=== PATIENT | male | born 1955 | race Caucasian/White ===

== ENCOUNTER 2022-12-01 20:52 | Emergency (ER) | payer MEDICARE, OTHER ==
[~2022-12-01] VITALS: Ht 175.3 cm; Wt 83.9 kg
--- NOTE | 2022-12-01 21:39 | NUR ---
BIBPA. R LOWER ABD PAIN X LAST NIGHT. REPORTS EPISODES OF VOMITING. 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 CHANGED INTO GOWN AND PLACED ON MONITOR AND V/S WNL.
--- NOTE | 2022-12-01 21:40 | NUR ---
22G IV STARTED AT . UNABLE TO DRAW BLOOD. PHLEB AT BEDSIDE FOR LAB DRAW.
[2022-12-01] MEDS ORDERED: MORPHINE SULFATE INJ 2 MG/ML DISP.SYRIN IV ONE (22:30)
[2022-12-01 22:32] LABS: BASOPHILS % (AUTO) 0.4 % (0.0-2.0); EOSINOPHILS % (AUTO) 2.8 % (0.0-6.0); HEMATOCRIT 47 % (39-51); HEMOGLOBIN 15.2 g/dL (13.5-17.5); LYMPHOCYTES # (AUTO) 1.6 K/uL (0.8-4.8); MEAN CORPUSCULAR HGB CONC 33 g/dl (31.0-36.0); MEAN CORPUSCULAR VOLUME 94 fL (80-96); MONOCYTES # (AUTO) 0.8 K/uL (0.1-1.30); MONOCYTES % (AUTO) 9.1 % (2.0-12.0); NEUTROPHILS # (AUTO) 5.7 K/uL (1.8-8.9); NEUTROPHILS % (AUTO) 68.7 % (43.0-81.0); PLATELET COUNT (AUTO) 189 K/uL (150-450); RED BLOOD CELL COUNT(AUTO) 4.95 MIL/uL (4.5-6.0); WHITE BLOOD COUNT (AUTO) 8.3 K/uL (4.3-11.0)
[2022-12-01 22:41] LABS: CALCIUM, SERUM 8.9 mg/dL (8.5-10.1); CREATININE 1.2 mg/dL (0.6-1.3); POTASSIUM 3.6 mmol/L (3.5-5.1)
[2022-12-01 22:47] LABS: ALBUMIN 3.3 g/dL (3.4-5.0); BILIRUBIN,DIRECT 0.2 mg/dL (0.0-0.2); BILIRUBIN,TOTAL 0.4 mg/dL (0.2-1.0); TOTAL PROTEIN, SERUM 6.7 g/dL (6.4-8.2)
[2022-12-01] MEDS ORDERED: MORPHINE SULFATE INJ 2 MG/ML DISP.SYRIN ONE (22:50)
[2022-12-02] MEDS ORDERED: LIDOCAINE 2% JEL UROJET 10 ML MM ONE (00:32)
--- NOTE | 2022-12-02 00:47 | NUR ---
URINE SENT TO LAB
--- NOTE | 2022-12-02 01:13 | NUR ---
US TECH AT BEDSIDE
[2022-12-02 01:28] LABS: BILIRUBIN,URINE NEGATIVE (NEGATIVE); COLOR,URINE YELLOW (YELLOW); LEUKOCYTE ESTERASE ,URINE NEGATIVE (NEGATIVE); NITRITE, URINE NEGATIVE (NEGATIVE); PROTEIN,URINE NEGATIVE (NEGATIVE); UGLUCOSE NEGATIVE (NEGATIVE); UROBILINOGEN,URINE 0.2 EU/dL (0.2)
[2022-12-02] MEDS ORDERED: ONDA4TAB11 PO (01:30)
--- NOTE | 2022-12-02 01:32 | NUR ---
[facility] CALLED FOR TRANSPORT. ETA 90-120 MINUTES.
--- NOTE | 2022-12-02 01:58 | NUR ---
REPORT GIVEN TO CHRIS AT [facility]
--- NOTE | 2022-12-02 02:30 | NUR ---
[facility] AT BEDSIDE FOR DISCHARGE BACK TO SNF
--- NOTE | 2022-12-02 02:45 | NUR ---
PT PICKED [facility]. HYDRANT SETTER PROVIDED WITH COPIES OF DISCHARGE PAPERS AND LAB/IMAGING RESULTS
[2022-12-02 03:25] VITALS: BP 123/67
== END 2022-12-02 02:45 ==
LOC: EDBD 20:59 → ER 20:59
DX: K50.80 Crohn's disease of both small and large intestine without complications (principal); R11.2 Nausea with vomiting, unspecified; E78.5 Hyperlipidemia, unspecified; E11.9 Type 2 diabetes mellitus without complications; Z79.899 Other long term (current) drug therapy; Z86.73 Personal history of transient ischemic attack (TIA), and cerebral infarction without residual deficits
CPT/HCPCS: 99285; 74176; 96374; 93005; 85025; 80048; 83690; 80076; 36415; 76705; 81003; J2270; J3490

== ENCOUNTER 2023-02-15 14:52 | Emergency (ER) | payer MEDICARE, OTHER ==
[~2023-02-15] VITALS: Ht 170.2 cm; Wt 72.6 kg
[~2023-02-15 14:52] MED LIST: ONDA4TAB11 PO
--- NOTE | 2023-02-15 15:15 | NUR ---
ASHLEY CHAPPELL [address] "From [facility] Dx PNA last week NOT Better", PLACED IN BED, AAOX3, BREATHING UNLABORED SATURATING AT 97% WITH 4LIT O2 VIA NC. C/O GENERALIZED PAIN 8/10 PS.
--- NOTE | 2023-02-15 15:51 | NUR ---
AT BEDSIDE FOR EVAL
--- NOTE | 2023-02-15 16:00 | NUR ---
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
--- NOTE | 2023-02-15 16:15 | NUR ---
SWAB FOR COVID19 SENT TO LAB
[2023-02-15 16:46] LABS: BASOPHILS % (AUTO) 0.5 % (0.0-2.0); EOSINOPHILS % (AUTO) 3.4 % (0.0-6.0); HEMATOCRIT 47 % (39-51); HEMOGLOBIN 15.3 g/dL (13.5-17.5); LYMPHOCYTES # (AUTO) 1.3 K/uL (0.8-4.8); LYMPHOCYTES % (AUTO) 14.4 % (20.0-44.0); MEAN CORPUSCULAR HGB CONC 33 g/dl (31.0-36.0); MEAN CORPUSCULAR VOLUME 93 fL (80-96); MONOCYTES # (AUTO) 0.8 K/uL (0.1-1.30); MONOCYTES % (AUTO) 8.5 % (2.0-12.0); NEUTROPHILS # (AUTO) 6.6 K/uL (1.8-8.9); NEUTROPHILS % (AUTO) 73.2 % (43.0-81.0); PLATELET COUNT (AUTO) 245 K/uL (150-450)
[2023-02-15 16:55] LABS: CALCIUM, SERUM 8.7 mg/dL (8.5-10.1); CARBON DIOXIDE 26 mmol/L (21-32); CHLORIDE 105 mmol/L (98-107); GLUCOSE 131 mg/dL (74-106); POTASSIUM 3.6 mmol/L (3.5-5.1); SODIUM SERUM 139 mmol/L (136-145); UREA NITROGEN, BLOOD 18 mg/dL (7-18)
[2023-02-15] MEDS ORDERED: ACETAMINOPHEN ES 500 MG TABLET PO ONE (18:00)
[2023-02-15] MEDS ORDERED: ACETAMINOPHEN ES 500 MG TABLET ONE (18:01)
[2023-02-15 18:06] VITALS: BP 100/66
[2023-02-15] MEDS ORDERED: BENZ-13 PO ×2 (19:34→19:35)
--- NOTE | 2023-02-15 19:47 | NUR ---
[facility] CALLED FOR BLS GOING BACK TO SNF PER VICTOR HUGO ETA 75 MIN
--- NOTE | 2023-02-15 21:15 | NUR ---
INFORMED [facility] THAT PATIENT IS DISCHARGE AND GOING BACK TO FACILTY.
--- NOTE | 2023-02-15 21:30 | NUR ---
PATIENT PICKUP BY [facility] STA[facility] AND REPORT WAS GIVEN.
== END 2023-02-15 21:30 ==
LOC: ER 14:55
DX: J40 Bronchitis, not specified as acute or chronic (principal); R05.9 Cough, unspecified; E11.9 Type 2 diabetes mellitus without complications; E78.5 Hyperlipidemia, unspecified; Z79.899 Other long term (current) drug therapy; Z86.73 Personal history of transient ischemic attack (TIA), and cerebral infarction without residual deficits; Z20.822 Contact with and (suspected) exposure to COVID-19
CPT/HCPCS: 36415; 71045-TC; 80048-TC; 84484-TC; 85025-TC; C9803

== ENCOUNTER 2023-03-02 03:32 | Emergency (ER) | payer MEDICARE, OTHER ==
[~2023-03-02] VITALS: Ht 160 cm; Wt 23.6 kg
[~2023-03-02 03:32] MED LIST changes: +BENZ-13 PO
--- NOTE | 2023-03-02 04:08 | NUR ---
EKTA FROM [facility] C/O HEMATURIA FROM F/C. F/C INSERTED 2 WEEKS AGO. PT AAOX4, PLACED IN BED, VITALS CHECKED.
--- NOTE | 2023-03-02 04:38 | NUR ---
BLADDER SCAN <20 ML
--- NOTE | 2023-03-02 05:19 | NUR ---
URINE COLLECTED SENT TO LAB
[2023-03-02 05:51] LABS: BILIRUBIN,URINE 2+ (NEGATIVE); COLOR,URINE DARK YELLOW (YELLOW); LEUKOCYTE ESTERASE ,URINE 1+ (NEGATIVE); NITRITE, URINE POSITIVE (NEGATIVE); PROTEIN,URINE 2+ mg/dl (NEGATIVE); UGLUCOSE NEGATIVE (NEGATIVE)
[2023-03-02 05:52] LABS: BACTERIA,URINE Moderate /HPF (None Seen); SQUAMOUS EPITHELIAL CELL,UR Few /HPF (None Seen); WBC,URINE 51-80 /HPF (0-3)
[2023-03-02] MEDS ORDERED: CIPR-262 PO (05:56)
[2023-03-02] MEDS ORDERED: CIPROFLOXACIN HCL 500 MG TABLET PO ONE (06:00)
[2023-03-02] MEDS ORDERED: CIPROFLOXACIN HCL 500 MG TABLET ONE (06:13)
--- NOTE | 2023-03-02 06:17 | NUR ---
[facility] CALLED FOR BLS GOING BACK TO SNF PER WAYLON ZUÑIGA [id number]
--- NOTE | 2023-03-02 06:47 | NUR ---
GAVE REPORT BACK TO FACILITY
--- NOTE | 2023-03-02 10:00 | NUR ---
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
[2023-03-02 10:22] VITALS: BP 123/77; TEMP 98.1
--- NOTE | 2023-03-02 10:23 | NUR ---
patient discharged. transported back to facility
[2023-03-09] MEDS ORDERED: MAGN400O6 PO (17:07)
[2023-03-09] MEDS ORDERED: CHOL100043 PO (17:07)
[2023-03-09] MEDS ORDERED: ALBU2.5V38 IH (17:07)
[2023-03-09] MEDS ORDERED: ONDA4TAB5 PO (17:07)
[2023-03-09] MEDS ORDERED: CALC500T13 PO (17:07)
[2023-03-09] MEDS ORDERED: CLON0.5T PO (17:07)
[2023-03-09] MEDS ORDERED: NALO4SPR (17:07)
[2023-03-09] MEDS ORDERED: LORA10TA68 PO (17:07)
[2023-03-09] MEDS ORDERED: LEVE500T9 PO (17:07)
[2023-03-09] MEDS ORDERED: RIVA10TA PO (17:07)
[2023-03-09] MEDS ORDERED: BISA10SU11 RC (17:07)
[2023-03-09] MEDS ORDERED: HYDR25SU11 RC (17:07)
[2023-03-09] MEDS ORDERED: ACET-868 PO (17:07)
[2023-03-09] MEDS ORDERED: MAG30ORA PO (17:07)
[2023-03-09] MEDS ORDERED: ATOR40TA PO (17:07)
[2023-03-09] MEDS ORDERED: NA P133E RC (17:07)
[2023-03-09] MEDS ORDERED: HYDR-4303 PO (17:07)
[2023-03-09] MEDS ORDERED: CIPR500T5 PO (17:07)
[2023-03-09] MEDS ORDERED: ARIP15TA3 PO (17:07)
[2023-03-09] MEDS ORDERED: TRAZ-182 PO (17:07)
[2023-03-09] MEDS ORDERED: MULT-447 PO (17:07)
[2023-03-09] MEDS ORDERED: DULO60CA45 PO (17:07)
== END 2023-03-02 10:22 ==
LOC: ER 03:33
DX: N39.0 Urinary tract infection, site not specified (principal); R31.9 Hematuria, unspecified; E78.5 Hyperlipidemia, unspecified; E11.9 Type 2 diabetes mellitus without complications; Z87.440 Personal history of urinary (tract) infections; Z79.899 Other long term (current) drug therapy
CPT/HCPCS: 81001; 87086-TC

== ENCOUNTER 2023-10-19 21:34 | Inpatient (IN) | payer MEDICARE, OTHER ==
[~2023-10-19] VITALS: Ht 170.2 cm; Wt 74.8 kg
[~2023-10-19 21:34] MED LIST changes: +ACET-868 PO; +ALBU2.5V38 IH; +ARIP15TA3 PO; +ATOR40TA PO; -BENZ-13 PO; +BISA10SU11 RC; +CALC500T13 PO; +CEPH500T PO; +CHOL100043 PO; +CLON0.5T PO; +DULO60CA45 PO; +HYDR-4303 PO; +HYDR25SU11 RC; +LEVE500T9 PO; +LORA10TA68 PO; +MAG30ORA PO; +MAGN400O6 PO; +MULT-447 PO; +NA P133E RC; +NALO4SPR; -ONDA4TAB11 PO; +ONDA4TAB5 PO; +RIVA10TA PO; +TRAZ-182 PO
[2023-10-19 23:34] LABS: APPEARANCE,URINE TURBID (CLEAR); BILIRUBIN,URINE 1+ (NEGATIVE); BLOOD, URINE 3+ Ery/uL (NEGATIVE); COLOR,URINE AMBER (YELLOW); KETONES,URINE TRACE mg/dL (NEGATIVE); LEUKOCYTE ESTERASE ,URINE 2+ (NEGATIVE); NITRITE, URINE POSITIVE (NEGATIVE); PH,URINE 5.5 (5.0-8.0); PROTEIN,URINE 2+ mg/dl (NEGATIVE); UGLUCOSE NEGATIVE (NEGATIVE)
[2023-10-19 23:36] LABS: ADD URINE CULTURE YES; BACTERIA,URINE Moderate /HPF (None Seen); RBC,URINE TOO NUMEROUS TO COUN /HPF (0-2); SQUAMOUS EPITHELIAL CELL,UR Rare /HPF (None Seen); WBC,URINE 21-50 /HPF (0-3)
[2023-10-20 01:23] LABS: BASOPHILS # (AUTO) 0.3 K/uL (0.0-0.2); HEMATOCRIT 43 % (39-51); HEMOGLOBIN 14.2 g/dL (13.5-17.5); LYMPHOCYTES # (AUTO) 0.5 K/uL (0.8-4.8); MEAN CORPUSCULAR HEMOGLOBIN 30 PG (26.0-33.0); MEAN CORPUSCULAR HGB CONC 33 g/dl (31.0-36.0); MEAN CORPUSCULAR VOLUME 91 fL (80-96); MONOCYTES # (AUTO) 0.9 K/uL (0.1-1.30); MONOCYTES % (AUTO) 3.3 % (2.0-12.0); NEUTROPHILS # (AUTO) 25.5 K/uL (1.8-8.9); NEUTROPHILS % (AUTO) 93.7 % (43.0-81.0); PLATELET COUNT (AUTO) 230 K/uL (150-450); RED CELL DISTRIBUTION WIDTH 14.6 % (11.5-15.0); WHITE BLOOD COUNT (AUTO) 27.3 K/uL (4.3-11.0)
[2023-10-20 01:34] LABS: INR 1.17 (0.91-1.10); PARTIAL THROMBOPLASTIN TIME 30.5 SEC (24.3-34.3); PROTHROMBIN TIME 12.3 SECS (9.2-11.1)
[2023-10-20 01:37] LABS: BILIRUBIN,DIRECT 0.2 mg/dL (0.0-0.2); BILIRUBIN,TOTAL 0.7 mg/dL (0.2-1.0); POTASSIUM 3.4 mmol/L (3.5-5.1); TOTAL PROTEIN, SERUM 6.7 g/dL (6.4-8.2)
[2023-10-20] MEDS ORDERED: CEFEPIME 1 GM VIAL ONE (02:55)
[2023-10-20] MEDS: IV NS 0.9% 1,000 ML BAG IV ONE (03:15)
[2023-10-20] MEDS: CEFEPIME 1 GM in IV D5W 50 ML IV ONE (03:15)
[2023-10-20] MEDS: IV NS 0.9% 500 ML IV ONE (06:55)
[2023-10-20] MEDS ORDERED: Z GUARD REMEDY 4 OZ OINT TP PRN (07:00)
[2023-10-20] MEDS ORDERED: MAG HYDROX/AL HYDROX/SIMETH 30 ML UDC PO PRN (07:00)
[2023-10-20] MEDS ORDERED: MAGNESIUM HYDROXIDE 30 ML UDC PO PRN ×2 (07:00→10:30)
[2023-10-20] MEDS ORDERED: ONDANSETRON HCL/PF 4 MG/2 ML VIAL IVP PRN (07:00)
[2023-10-20 07:30] VITALS: BP 99/58; TEMP 98.2; O2SAT 98
[2023-10-20] MEDS: POTASSIUM CHLORIDE 20 MEQ TAB.PRT.SR PO ONE (07:47)
[2023-10-20] MEDS ORDERED: CRAN425C6 PO (07:49)
[2023-10-20] MEDS ORDERED: LATA2.5D2 EACHEYE (07:49)
[2023-10-20] MEDS ORDERED: HYDR-3980 PO (07:49)
[2023-10-20] MEDS: ACETAMINOPHEN 325 MG TABLET PO PRN (08:29)
[2023-10-20 09:40] LABS: BASOPHILS % (AUTO) 0.1 % (0.0-2.0); EOSINOPHILS % (AUTO) 0.2 % (0.0-6.0); HEMATOCRIT 38 % (39-51); HEMOGLOBIN 12.3 g/dL (13.5-17.5); LYMPHOCYTES # (AUTO) 0.8 K/uL (0.8-4.8); LYMPHOCYTES % (AUTO) 3.7 % (20.0-44.0); MEAN CORPUSCULAR HEMOGLOBIN 30 PG (26.0-33.0); MEAN CORPUSCULAR HGB CONC 33 g/dl (31.0-36.0); MEAN CORPUSCULAR VOLUME 93 fL (80-96); MONOCYTES # (AUTO) 0.5 K/uL (0.1-1.30); MONOCYTES % (AUTO) 2.2 % (2.0-12.0); NEUTROPHILS % (AUTO) 93.8 % (43.0-81.0); PLATELET COUNT (AUTO) 201 K/uL (150-450); RED BLOOD CELL COUNT(AUTO) 4.06 MIL/uL (4.5-6.0); RED CELL DISTRIBUTION WIDTH 14.7 % (11.5-15.0); WHITE BLOOD COUNT (AUTO) 22.4 K/uL (4.3-11.0)
[2023-10-20] MEDS: IV NS 0.9% 1,000 ML IV PRN (09:46)
[2023-10-20 09:54] LABS: CALCIUM, SERUM 8.1 mg/dL (8.5-10.1); CREATININE 0.9 mg/dL (0.6-1.3); POTASSIUM 3.7 mmol/L (3.5-5.1)
[2023-10-20] MEDS ORDERED: ALBUTEROL FS 2.5 MG/3 ML VIAL.NEB NEB PRN (10:30)
[2023-10-20] MEDS ORDERED: NA PHOS,M-B/NA PHOS,DI-BA 1 EA ENEMA RC PRN (10:30)
[2023-10-20] MEDS ORDERED: BISACODYL SUPP (10 MG) 10 MG/SUPP.RECT SUPP.RECT RC PRN (10:30)
[2023-10-20] MEDS ORDERED: CALCIUM CARBONATE 500 MG TAB.CHEW PO PRN (10:30)
[2023-10-20] MEDS: CEFTRIAXONE 1 G in IV D5W 50 ML IV SCH (10:40)
[2023-10-20] MEDS: clonazePAM 0.5 MG TABLET PO SCH (12:25)
[2023-10-20 16:00] VITALS: BP 103/64; TEMP 97.5; O2SAT 94
[2023-10-20] MEDS: LEVETIRACETAM (250 MG) 250 MG TABLET PO SCH (20:52)
[2023-10-20 21:09] VITALS: BP 94/57; TEMP 99
[2023-10-20] MEDS ORDERED: ZOLPIDEM TARTRATE 5 MG TABLET PO PRN (22:00)
[2023-10-20 22:19] VITALS: BP 100/55; O2SAT 95
[2023-10-20] MEDS: TRAZODONE 50 MG TABLET PO SCH (22:44)
[2023-10-20 23:38] VITALS: BP 105/55; O2SAT 96
[2023-10-20] MEDS: ARIPIPRAZOLE 5 MG TABLET PO SCH (23:38)
[2023-10-21 00:54] VITALS: BP 98/53
[2023-10-21 00:55] VITALS: BP 98/53; TEMP 98
[2023-10-21 05:21] VITALS: BP 113/71
[2023-10-21 07:19] LABS: BASOPHILS % (AUTO) 0.2 % (0.0-2.0); EOSINOPHILS # (AUTO) 0.2 K/uL (0.0-0.7); EOSINOPHILS % (AUTO) 1.8 % (0.0-6.0); HEMATOCRIT 37 % (39-51); HEMOGLOBIN 12.4 g/dL (13.5-17.5); LYMPHOCYTES # (AUTO) 0.8 K/uL (0.8-4.8); LYMPHOCYTES % (AUTO) 8.5 % (20.0-44.0); MEAN CORPUSCULAR HEMOGLOBIN 31 PG (26.0-33.0); MEAN CORPUSCULAR HGB CONC 34 g/dl (31.0-36.0); MEAN CORPUSCULAR VOLUME 92 fL (80-96); MONOCYTES # (AUTO) 0.6 K/uL (0.1-1.30); MONOCYTES % (AUTO) 6.8 % (2.0-12.0); NEUTROPHILS # (AUTO) 7.5 K/uL (1.8-8.9); NEUTROPHILS % (AUTO) 82.7 % (43.0-81.0); PLATELET COUNT (AUTO) 175 K/uL (150-450); RED BLOOD CELL COUNT(AUTO) 4.04 MIL/uL (4.5-6.0); RED CELL DISTRIBUTION WIDTH 14.6 % (11.5-15.0)
[2023-10-21 07:30] VITALS: BP 102/60; TEMP 98.1; O2SAT 92
[2023-10-21 07:31] LABS: CALCIUM, SERUM 8.2 mg/dL (8.5-10.1); CREATININE 0.8 mg/dL (0.6-1.3); MAGNESIUM 1.6 mg/dL (1.8-2.4); PHOSPHORUS 2.5 mg/dL (2.5-4.9); POTASSIUM 3.7 mmol/L (3.5-5.1)
[2023-10-21] MEDS: DULOXETINE HCL 30 MG CAPSULE.DR PO SCH (09:17)
[2023-10-21] MEDS: MAGNESIUM OXIDE 400 MG TABLET PO ONE (09:17)
[2023-10-21 16:00] VITALS: BP 128/71; TEMP 98.1; O2SAT 94
[2023-10-21 20:00] VITALS: BP 110/65; TEMP 97.9; O2SAT 95
[2023-10-22 07:03] LABS: BASOPHILS % (AUTO) 0.2 % (0.0-2.0); EOSINOPHILS # (AUTO) 0.3 K/uL (0.0-0.7); EOSINOPHILS % (AUTO) 3.8 % (0.0-6.0); HEMATOCRIT 38 % (39-51); HEMOGLOBIN 12.8 g/dL (13.5-17.5); LYMPHOCYTES % (AUTO) 13.6 % (20.0-44.0); MEAN CORPUSCULAR HEMOGLOBIN 31 PG (26.0-33.0); MEAN CORPUSCULAR HGB CONC 34 g/dl (31.0-36.0); MEAN CORPUSCULAR VOLUME 91 fL (80-96); MONOCYTES # (AUTO) 0.8 K/uL (0.1-1.30); NEUTROPHILS # (AUTO) 5.5 K/uL (1.8-8.9); NEUTROPHILS % (AUTO) 72.4 % (43.0-81.0); PLATELET COUNT (AUTO) 176 K/uL (150-450); RED BLOOD CELL COUNT(AUTO) 4.13 MIL/uL (4.5-6.0); RED CELL DISTRIBUTION WIDTH 14.9 % (11.5-15.0); WHITE BLOOD COUNT (AUTO) 7.6 K/uL (4.3-11.0)
[2023-10-22 07:24] LABS: CALCIUM, SERUM 8.6 mg/dL (8.5-10.1); CREATININE 0.8 mg/dL (0.6-1.3); MAGNESIUM 1.9 mg/dL (1.8-2.4); POTASSIUM 3.7 mmol/L (3.5-5.1)
[2023-10-22 08:00] VITALS: BP 122/73; TEMP 97.9; O2SAT 94
[2023-10-22 16:03] VITALS: BP 111/48; TEMP 98.1; O2SAT 97
[2023-10-22 20:00] VITALS: BP 97/60; TEMP 98.1; O2SAT 96
[2023-10-22 21:02] VITALS: BP 97/60; TEMP 98.1; O2SAT 96
[2023-10-23 01:29] VITALS: BP 93/55; TEMP 97.9; O2SAT 94
[2023-10-23 07:14] LABS: BASOPHILS % (AUTO) 0.3 % (0.0-2.0); EOSINOPHILS # (AUTO) 0.3 K/uL (0.0-0.7); EOSINOPHILS % (AUTO) 3.9 % (0.0-6.0); HEMATOCRIT 38 % (39-51); LYMPHOCYTES # (AUTO) 1.1 K/uL (0.8-4.8); LYMPHOCYTES % (AUTO) 16.8 % (20.0-44.0); MEAN CORPUSCULAR HEMOGLOBIN 31 PG (26.0-33.0); MEAN CORPUSCULAR HGB CONC 34 g/dl (31.0-36.0); MEAN CORPUSCULAR VOLUME 91 fL (80-96); MONOCYTES # (AUTO) 0.6 K/uL (0.1-1.30); MONOCYTES % (AUTO) 8.4 % (2.0-12.0); NEUTROPHILS # (AUTO) 4.7 K/uL (1.8-8.9); NEUTROPHILS % (AUTO) 70.6 % (43.0-81.0); PLATELET COUNT (AUTO) 196 K/uL (150-450); RED BLOOD CELL COUNT(AUTO) 4.18 MIL/uL (4.5-6.0); RED CELL DISTRIBUTION WIDTH 14.8 % (11.5-15.0); WHITE BLOOD COUNT (AUTO) 6.7 K/uL (4.3-11.0)
[2023-10-23 07:47] LABS: CALCIUM, SERUM 8.7 mg/dL (8.5-10.1); CREATININE 0.8 mg/dL (0.6-1.3); POTASSIUM 3.5 mmol/L (3.5-5.1)
[2023-10-23 08:00] VITALS: BP 120/78; TEMP 97.8; O2SAT 96
[2023-10-23] MEDS ORDERED: LEVO500T90 PO (08:52)
[2023-10-23] MEDS: ACETAMINOPHEN 325 MG TABLET PO PRN (09:22)
== END 2023-10-23 13:35 | DRG 689 ==
LOC: ER 21:43 → MED 10-20 05:58
PROVIDERS: ADMIT Internal Medicine; ATTEND Internal Medicine
DX: N39.0 Urinary tract infection, site not specified (principal); G93.41 Metabolic encephalopathy; G40.909 Epilepsy, unspecified, not intractable, without status epilepticus; Z20.822 Contact with and (suspected) exposure to COVID-19; I48.0 Paroxysmal atrial fibrillation; Z79.01 Long term (current) use of anticoagulants; Z86.73 Personal history of transient ischemic attack (TIA), and cerebral infarction without residual deficits; E78.5 Hyperlipidemia, unspecified; Z87.440 Personal history of urinary (tract) infections; E11.9 Type 2 diabetes mellitus without complications; R27.8 Other lack of coordination; Z79.51 Long term (current) use of inhaled steroids; Z79.899 Other long term (current) drug therapy; R79.89 Other specified abnormal findings of blood chemistry; F32.9 Major depressive disorder, single episode, unspecified; F29 Unspecified psychosis not due to a substance or known physiological condition; B96.5 Pseudomonas (aeruginosa) (mallei) (pseudomallei) as the cause of diseases classified elsewhere; R31.9 Hematuria, unspecified
CPT/HCPCS: 36415; 71045-TC; 80048-TC; 80076-TC; 81001; 83735-TC; 84100-TC; 85025-TC; 85730-TC; 87081-TC; 87086-TC; A4217; A4223; G0378; J0692; J0696; J7030; J7040; J7060

== ENCOUNTER 2024-01-17 15:05 | Inpatient (IN) | payer MEDICARE, OTHER ==
[~2024-01-17] VITALS: Ht 170.2 cm; Wt 73.5 kg
[~2024-01-17 15:05] MED LIST changes: -CEPH500T PO; +CRAN425C6 PO; +HYDR-3980 PO; -HYDR25SU11 RC; +LATA2.5D2 EACHEYE; +LEVO500T90 PO; -LORA10TA68 PO; -MAG30ORA PO; -ONDA4TAB5 PO
[2024-01-17] MEDS ORDERED: TRAZ-257 PO (15:49)
[2024-01-17 15:56] LABS: CREATININE 1.1 mg/dL (0.6-1.3); POTASSIUM 3.7 mmol/L (3.5-5.1)
[2024-01-17 15:59] LABS: APPEARANCE,URINE Cloudy (CLEAR); BILIRUBIN,URINE LARGE (NEGATIVE); BLOOD, URINE Large Ery/uL (NEGATIVE); COLOR,URINE BROWN (YELLOW); KETONES,URINE 15 mg/dL (NEGATIVE); LEUKOCYTE ESTERASE ,URINE Large (NEGATIVE); NITRITE, URINE Positive (NEGATIVE); PROTEIN,URINE >=300 mg/dl (NEGATIVE); UGLUCOSE Negative (NEGATIVE)
[2024-01-17 16:10] LABS: CALCIUM, SERUM 8.8 mg/dL (8.5-10.1)
[2024-01-17 16:14] LABS: RBC,URINE TOO NUMEROUS TO COUN /HPF (0-2)
[2024-01-17 16:15] LABS: ADD URINE CULTURE YES; BACTERIA,URINE 1+ /HPF (None Seen); SQUAMOUS EPITHELIAL CELL,UR Few /HPF (None Seen)
[2024-01-17 16:33] LABS: BASOPHILS # (AUTO) 0.1 K/uL (0.0-0.2); BASOPHILS % (AUTO) 0.7 % (0.0-2.0); EOSINOPHILS # (AUTO) 0.4 K/uL (0.0-0.7); EOSINOPHILS % (AUTO) 3.1 % (0.0-6.0); HEMATOCRIT 49 % (39-51); HEMOGLOBIN 16.1 g/dL (13.5-17.5); LYMPHOCYTES # (AUTO) 1.9 K/uL (0.8-4.8); LYMPHOCYTES % (AUTO) 15.9 % (20.0-44.0); MEAN CORPUSCULAR HEMOGLOBIN 30 PG (26.0-33.0); MEAN CORPUSCULAR HGB CONC 33 g/dl (31.0-36.0); MEAN CORPUSCULAR VOLUME 92 fL (80-96); MONOCYTES # (AUTO) 0.8 K/uL (0.1-1.30); MONOCYTES % (AUTO) 6.5 % (2.0-12.0); NEUTROPHILS # (AUTO) 8.6 K/uL (1.8-8.9); NEUTROPHILS % (AUTO) 73.8 % (43.0-81.0); RED BLOOD CELL COUNT(AUTO) 5.33 MIL/uL (4.5-6.0); RED CELL DISTRIBUTION WIDTH 13.9 % (11.5-15.0); WHITE BLOOD COUNT (AUTO) 11.7 K/uL (4.3-11.0)
[2024-01-17 16:39] LABS: INR 1.31 (0.91-1.10); PROTHROMBIN TIME 13.3 SECS (9.2-11.1)
[2024-01-17] MEDS: CEFTRIAXONE 1GM BAG (ER ONLY) 1 GM/50 ML PIGGYBACK IV ONE (17:00)
[2024-01-17 18:13] LABS: EOSINOPHILS % (MANUAL) 2 % (0-4); LYMPHOCYTES % (MANUAL) 19 % (16-48); MONOCYTES % (MANUAL) 5 % (0-11.0); NEUTROPHILS % (MANUAL) 74 (42-76)
[2024-01-17 18:14] LABS: ANISOCYTOSIS 1+; PLATELET COUNT (AUTO) 221 K/uL (150-450); PLATELET ESTIMATE ADEQU; ROULEAUX 1+
[2024-01-17] MEDS ORDERED: MAGNESIUM HYDROXIDE 30 ML UDC PO PRN (19:30)
[2024-01-17] MEDS ORDERED: ALBUTEROL FS 2.5 MG/3 ML VIAL.NEB IH PRN (19:30)
[2024-01-17] MEDS ORDERED: NA PHOS,M-B/NA PHOS,DI-BA 1 EA ENEMA RC PRN (19:30)
[2024-01-17] MEDS ORDERED: ACETAMINOPHEN 325 MG TABLET PO PRN ×2 (19:30)
[2024-01-17] MEDS ORDERED: BISACODYL SUPP (10 MG) 10 MG/SUPP.RECT SUPP.RECT RC PRN (19:30)
[2024-01-17] MEDS ORDERED: HYDROCODONE/APAP 10/325MG TABLET PO PRN (19:30)
[2024-01-17] MEDS ORDERED: CALCIUM CARBONATE 500 MG TAB.CHEW PO PRN (20:30)
[2024-01-17] MEDS ORDERED: CALCIUM CARBONATE (1250) 500 MG TABLET PO PRN (20:30)
[2024-01-17 21:00] VITALS: BP 119/78; TEMP 97.5; O2SAT 98
[2024-01-17] MEDS: LEVETIRACETAM (250 MG) 250 MG TABLET PO SCH (21:21)
[2024-01-17] MEDS: clonazePAM 0.5 MG TABLET PO SCH (21:22)
[2024-01-17] MEDS: TRAZODONE 50 MG TABLET PO SCH ×2 (22:00→22:58)
[2024-01-17] MEDS: LATANOPROST EYE DROP 0.005% 2.5 ML BOTTLE EACHEYE SCH (22:48)
[2024-01-17] MEDS: ATORVASTATIN 10 MG TABLET PO SCH (23:00)
[2024-01-18] MEDS: HYDROCODONE/APAP 5/325MG TABLET PO PRN (05:31)
[2024-01-18 08:00] VITALS: BP 107/72; TEMP 97.7; O2SAT 96
[2024-01-18] MEDS: CHOLECALCIFEROL 1,000 UNIT TABLET (VIT D3) PO SCH (08:40)
[2024-01-18] MEDS: DULOXETINE HCL 30 MG CAPSULE.DR PO SCH (08:40)
[2024-01-18] MEDS: MULTIVIT W/MINERALS 1 TAB TABLET PO SCH (08:41)
[2024-01-18] MEDS ORDERED: Medication Not On Formulary EA (Cranberry Extract (Cranberry) 425 MG) PO SCH (09:00)
[2024-01-18 14:25] LABS: BASOPHILS # (AUTO) 0.2 K/uL (0.0-0.2); BASOPHILS % (AUTO) 1.9 % (0.0-2.0); EOSINOPHILS # (AUTO) 0.3 K/uL (0.0-0.7); HEMATOCRIT 49 % (39-51); HEMOGLOBIN 16.1 g/dL (13.5-17.5); LYMPHOCYTES # (AUTO) 1.1 K/uL (0.8-4.8); LYMPHOCYTES % (AUTO) 12.5 % (20.0-44.0); MEAN CORPUSCULAR HEMOGLOBIN 31 PG (26.0-33.0); MEAN CORPUSCULAR HGB CONC 33 g/dl (31.0-36.0); MEAN CORPUSCULAR VOLUME 94 fL (80-96); MONOCYTES # (AUTO) 0.6 K/uL (0.1-1.30); MONOCYTES % (AUTO) 6.7 % (2.0-12.0); NEUTROPHILS # (AUTO) 6.4 K/uL (1.8-8.9); NEUTROPHILS % (AUTO) 74.9 % (43.0-81.0); PLATELET COUNT (AUTO) 197 K/uL (150-450); RED BLOOD CELL COUNT(AUTO) 5.22 MIL/uL (4.5-6.0); RED CELL DISTRIBUTION WIDTH 14.1 % (11.5-15.0); WHITE BLOOD COUNT (AUTO) 8.5 K/uL (4.3-11.0)
[2024-01-18 14:29] LABS: CALCIUM, SERUM 7.9 mg/dL (8.5-10.1); CREATININE 0.9 mg/dL (0.6-1.3); POTASSIUM 3.9 mmol/L (3.5-5.1)
[2024-01-18 16:00] VITALS: BP 107/73; TEMP 97.7; O2SAT 95
[2024-01-18] MEDS: CEFTRIAXONE 1 G in IV D5W 50 ML IV SCH (16:19)
[2024-01-18 20:00] VITALS: BP 133/67; TEMP 97.8; O2SAT 95
[2024-01-18 20:10] VITALS: O2SAT 96
[2024-01-19 07:47] LABS: BASOPHILS % (AUTO) 0.4 % (0.0-2.0); EOSINOPHILS # (AUTO) 0.4 K/uL (0.0-0.7); EOSINOPHILS % (AUTO) 3.9 % (0.0-6.0); HEMATOCRIT 49 % (39-51); HEMOGLOBIN 16.1 g/dL (13.5-17.5); LYMPHOCYTES # (AUTO) 1.9 K/uL (0.8-4.8); MEAN CORPUSCULAR HEMOGLOBIN 31 PG (26.0-33.0); MEAN CORPUSCULAR HGB CONC 33 g/dl (31.0-36.0); MEAN CORPUSCULAR VOLUME 93 fL (80-96); MONOCYTES # (AUTO) 0.7 K/uL (0.1-1.30); MONOCYTES % (AUTO) 8.1 % (2.0-12.0); NEUTROPHILS % (AUTO) 66.6 % (43.0-81.0); PLATELET COUNT (AUTO) 194 K/uL (150-450); RED BLOOD CELL COUNT(AUTO) 5.27 MIL/uL (4.5-6.0); RED CELL DISTRIBUTION WIDTH 13.9 % (11.5-15.0)
[2024-01-19 07:59] LABS: CALCIUM, SERUM 8.8 mg/dL (8.5-10.1); CREATININE 0.9 mg/dL (0.6-1.3); POTASSIUM 3.7 mmol/L (3.5-5.1)
[2024-01-19 08:00] VITALS: BP 127/82; TEMP 97.5; O2SAT 100
[2024-01-19 12:00] VITALS: BP 104/78; TEMP 97.6; O2SAT 98
[2024-01-19 16:00] VITALS: BP_SYST 100; BP_SYST 123; BP_DIAS 62; BP_DIAS 78; TEMP 97.6; TEMP 97.7; O2SAT 96; O2SAT 97
[2024-01-19 20:00] VITALS: BP 100/66; TEMP 98.6; O2SAT 94
[2024-01-20] VITALS: BP 131/84; TEMP 97.3; O2SAT 93
[2024-01-20 04:00] VITALS: BP 135/86; TEMP 97.8; O2SAT 95
[2024-01-20 06:56] LABS: BASOPHILS # (AUTO) 0.1 K/uL (0.0-0.2); BASOPHILS % (AUTO) 0.8 % (0.0-2.0); EOSINOPHILS # (AUTO) 0.4 K/uL (0.0-0.7); EOSINOPHILS % (AUTO) 4.7 % (0.0-6.0); HEMATOCRIT 47 % (39-51); HEMOGLOBIN 15.8 g/dL (13.5-17.5); LYMPHOCYTES # (AUTO) 1.5 K/uL (0.8-4.8); LYMPHOCYTES % (AUTO) 19.7 % (20.0-44.0); MEAN CORPUSCULAR HEMOGLOBIN 31 PG (26.0-33.0); MEAN CORPUSCULAR HGB CONC 34 g/dl (31.0-36.0); MEAN CORPUSCULAR VOLUME 92 fL (80-96); MONOCYTES # (AUTO) 0.6 K/uL (0.1-1.30); MONOCYTES % (AUTO) 7.2 % (2.0-12.0); NEUTROPHILS # (AUTO) 5.2 K/uL (1.8-8.9); NEUTROPHILS % (AUTO) 67.6 % (43.0-81.0); PLATELET COUNT (AUTO) 183 K/uL (150-450); RED BLOOD CELL COUNT(AUTO) 5.13 MIL/uL (4.5-6.0); RED CELL DISTRIBUTION WIDTH 13.5 % (11.5-15.0); WHITE BLOOD COUNT (AUTO) 7.7 K/uL (4.3-11.0)
[2024-01-20 07:07] LABS: CALCIUM, SERUM 8.3 mg/dL (8.5-10.1); MAGNESIUM 1.9 mg/dL (1.8-2.4); PHOSPHORUS 3.2 mg/dL (2.5-4.9); POTASSIUM 3.6 mmol/L (3.5-5.1)
[2024-01-20 08:00] VITALS: BP 113/71; TEMP 99.5; O2SAT 97
[2024-01-20] MEDS ORDERED: CEFT1FRO2 IV (10:32)
== END 2024-01-20 13:55 | DRG 689 ==
LOC: ER 16:40 → MED 20:19
PROVIDERS: ADMIT Student in an Organized Health Care Education/Training Program; ATTEND Nurse Practitioner Acute Care
DX: N39.0 Urinary tract infection, site not specified (principal); G93.41 Metabolic encephalopathy; R31.0 Gross hematuria; I48.0 Paroxysmal atrial fibrillation; G40.909 Epilepsy, unspecified, not intractable, without status epilepticus; Z20.822 Contact with and (suspected) exposure to COVID-19; Z87.440 Personal history of urinary (tract) infections; Z86.73 Personal history of transient ischemic attack (TIA), and cerebral infarction without residual deficits; E11.9 Type 2 diabetes mellitus without complications; E78.5 Hyperlipidemia, unspecified; R27.8 Other lack of coordination; Z79.01 Long term (current) use of anticoagulants; Z79.51 Long term (current) use of inhaled steroids; R79.89 Other specified abnormal findings of blood chemistry; F29 Unspecified psychosis not due to a substance or known physiological condition; F32.9 Major depressive disorder, single episode, unspecified; G89.29 Other chronic pain; I10 Essential (primary) hypertension; B96.89 Other specified bacterial agents as the cause of diseases classified elsewhere
CPT/HCPCS: 36415; 80048-TC; 81001; 82962-TC; 83735-TC; 84100-TC; 85025-TC; 85610-TC; 87040-TC; 87081-TC; 87086-TC; 93307-TC; 94761-TC; 94799-TC; A4217; A4223; G0378; J0696; J7050; J7060